=== PATIENT | female | born 1970 | race Two or more races ===

== ENCOUNTER → 2025-01-24 | Outpatient (CLI) | payer MEDICAID, SELFPAY ==
--- NOTE | 2025-01-24 13:15 | XR_ITS ---
Examination: Screening digital mammography, bilateral Computer aided detection 3-D breast Tomosynthesis, bilateral Date and time of exam: January 24, 2025 12:51 PM INDICATIONS: Bilateral breast pain 2 months Indication: Screening Technique: Nonmagnified MLO, CC views of the breasts to been obtained, reconstructed from 3-D Tomosynthesis images. R2 computer aided detection program utilized for evaluation of suspicious masses and/or abnormal calcifications. 3-D Tomosynthesis images obtained. Findings: Scattered areas of fibroglandular density. Stable density with breast biopsy marker upper outer left breast No interval suspicious masses Impression: BI-RADS Category 0: Incomplete: Need additional imaging evaluation Given the patient's presentation of bilateral breast pain recommend bilateral breast sonography follow-up
== END | disposition home or self-care (01) ==
PROVIDERS: PCP Nurse Practitioner Family; Referring Provider Nurse Practitioner Family; Visit Provider Nurse Practitioner Family
DX: Z12.31 Encounter for screening mammogram for malignant neoplasm of breast (principal); R92.8 Other abnormal and inconclusive findings on diagnostic imaging of breast
CPT/HCPCS: 77063; 77067

== ENCOUNTER → 2025-02-23 | Outpatient (CLI) | payer MEDICAID, SELFPAY ==
--- NOTE | 2025-02-23 15:00 | XR_ITS ---
Examination: Breast ultrasound complete, bilateral Date and time of exam: February 23, 2025 1456 hours INDICATIONS: Bilateral breast pain beginning 2 months ago Technique: Real-time grayscale ultrasonographic imaging bilateral breasts, including all 4 quadrants as well as nipple retroareolar and axillary regions. Findings: Sonographic images right breast 6:00 cyst 6 x 7 mm No solid nodules Sonographic images left breast 2:00 cyst 5 x 6 mm 3:00 nodule with breast biopsy marker 12 x 12 mm 6:00 cyst 7 x 5 mm 11:00 nodule lobular margins 6 x 6 mm IMPRESSION: BI-RADS Category 3: Probably benign findings One additional 6 month left breast sonogram is recommended to document stability of 3:00 nodule with breast biopsy marker described above
== END | disposition home or self-care (01) ==
LOC: CDIM 14:33
PROVIDERS: PCP Nurse Practitioner Family; Referring Provider Nurse Practitioner Family; Visit Provider Nurse Practitioner Family
DX: R92.2 Inconclusive mammogram (principal); N63.25 Unspecified lump in the left breast, overlapping quadrants
CPT/HCPCS: 76641

== ENCOUNTER → 2025-08-26 | Outpatient (CLI) | payer MEDICAID, SELFPAY ==
--- NOTE | 2025-08-26 13:00 | XR_ITS ---
Examination: Breast ultrasound, unilateral, left complete Date and time of exam: August 26, 2025, 1318 hours INDICATIONS: Left breast sonogram February 23, 2025 3:00 nodule with breast biopsy marker 12 x 12 mm Technique: Real-time matthew scale ultrasonographic imaging performed left breast including all 4 quadrants as well as nipple retroareolar and axillary region. Findings: 1:00 cyst 5 x 3 mm 3:00 nodule circumscribed with breast biopsy marker 9 x 12 mm 6:00 cyst 6 x 6 mm IMPRESSION: BI-RADS Category 2: Benign findings
== END | disposition home or self-care (01) ==
LOC: CDIM 12:52
PROVIDERS: Referring Provider Nurse Practitioner Family; Visit Provider Nurse Practitioner Family
DX: N63.25 Unspecified lump in the left breast, overlapping quadrants (principal)
CPT/HCPCS: 76641